=== PATIENT | female | born 1990 | race Caucasian/White ===

== ENCOUNTER 2017-03-08 14:17 | Emergency (ER) | payer OTHER ==
[~2017-03-08] VITALS: Ht 170.2 cm; Wt 77.3 kg
[2017-03-08 14:22] VITALS: BP 131/79; TEMP 98.4
[2017-03-08] MEDS ORDERED: LEXAPRO20 MG PO (14:27)
[2017-03-08] MEDS ORDERED: ADIPEX-P37.5 MG PO (14:27)
[2017-03-08] MEDS ORDERED: PREDNISONE20 MG PO (16:09)
[2017-03-08 16:12] VITALS: PULSE 98
== END 2017-03-08 16:13 | disposition home or self-care (01) ==
LOC: COL.ER 14:17
DX: T78.40XA Allergy, unspecified, initial encounter (principal); F32.9 Major depressive disorder, single episode, unspecified
CPT/HCPCS: J7512

== ENCOUNTER 2017-04-04 13:45 | Emergency (ER) | payer OTHER ==
[~2017-04-04] VITALS: Ht 167.6 cm; Wt 76.8 kg
[~2017-04-04 13:45] MED LIST: ADIPEX-P37.5 MG PO; LEXAPRO20 MG PO; PREDNISONE20 MG PO
[2017-04-04 13:48] VITALS: BP 127/70; TEMP 98.3
[2017-04-04 15:28] VITALS: PULSE 90
== END 2017-04-04 15:29 | disposition home or self-care (01) ==
LOC: COL.ER 13:45
DX: T78.40XA Allergy, unspecified, initial encounter (principal); X58.XXXA Exposure to other specified factors, initial encounter
CPT/HCPCS: J8540

== ENCOUNTER 2022-04-09 09:59 | Emergency (ER) | payer OTHER ==
[~2022-04-09] VITALS: Ht 170.2 cm; Wt 79.5 kg
[2022-04-09 10:03] VITALS: TEMP 97.9
[2022-04-09 10:45] LABS: BASO % 0.3 % (0.0-2.0); EOS # 0.1 K/mm3 (0.0-0.7); EOS % 1.4 % (0.0-4.0); GRAN # 3.9 K/mm3 (1.4-6.5); GRAN % 55.4 % (42.2-75.2); HEMATOCRIT 39.2 % (37.0-47.0); LYMPH # 2.4 K/mm3 (1.2-3.4); MEAN CELL VOLUME 82 fl (80.0-100.0); MEAN CORPUSCULAR HEMOGLOBIN 27 pg (27-31); MEAN CORPUSCULAR HGB CONC 33 g/dl (33.0-37.0); MEAN PLATELET VOLUME 9.7 fl (7.4-10.4); MONO # 0.6 K/mm3 (0.1-0.6); MONO % 8.5 % (1.7-9.3); PLATELET COUNT 434 K/mm3 (130-400); RED BLOOD COUNT 4.78 M/mm3 (4.10-5.30); REDCELL DISTRIBUTION WIDTH-CV 13.2 % (11.5-14.5)
[2022-04-09 10:52] LABS: ALANINE AMINOTRANSFERASE 12 U/L (0-55); ALBUMIN 4.4 gm/dL (3.5-5.0); ALKALINE PHOSPHATASE 70 U/L (40-150); ANION GAP 9 mmol/L (7-16); AST,SGOT 13 U/L (5-34); BILIRUBIN,TOTAL 0.4 mg/dL (0.2-1.2); BLOOD UREA NITROGEN 10 mg/dL (7-19); CALCIUM 9.3 mg/dL (8.4-10.2); CARBON DIOXIDE 24 mmol/L (22-29); CHLORIDE 105 mmol/L (98-107); CREATININE, serum 0.79 mg/dL (0.57-1.11); GLUCOSE 98 mg/dL (70-99); POTASSIUM 3.5 mmol/L (3.5-4.5); SODIUM 138 mmol/L (136-145); TOTAL PROTEIN 7.7 gm/dL (6.2-8.1)
[2022-04-09 10:58] LABS: TROPONIN-I < 0.010 ng/mL (0.00-0.033)
[2022-04-09 11:37] VITALS: BP 117/82; PULSE 71
[2022-04-09] MEDS ORDERED: TOPROL XL 25MG25 MG PO (11:44)
== END 2022-04-09 11:59 | disposition home or self-care (01) ==
LOC: COL.ER 09:59
PROVIDERS: Physician Assistant
DX: I47.1 Supraventricular tachycardia (principal); Z91.040 Latex allergy status